=== PATIENT | female | born 1980 | race Caucasian/White ===

== ENCOUNTER 2018-06-21 12:11 | Emergency (ER) | payer OTHER ==
[2018-06-21 12:27] VITALS: BP 104/68; PULSE 77; TEMP 98.3; BMI 28.3
--- NOTE | 2018-06-21 13:16 | PDOC ---
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 Time Seen by Provider: 06/21/18 12:36 History Source: Patient Past History - Past Medical History Allergies/Adverse Reactions: Allergies Allergy/AdvReac Type Severity Reaction Status Date / Time No Known Allergies Allergy Verified 06/21/18 12:25 Home Medications: Ambulatory Orders NK [No Known Home Medication] 06/21/18 - Suicide/Smoking/Psychosocial Hx Smoking History: Never smoked Review of Systems - Review of Systems ABD/GI: No: Nausea, Vomiting, Abdominal cramping : No: Dysuria *Physical Exam - Vital Signs Last Vital Signs Temp Pulse Resp BP Pulse Ox 98.3 F 77 16 104/68 99 06/21/18 12:25 06/21/18 12:25 06/21/18 12:25 06/21/18 12:25 06/21/18 12:25 - Physical Exam General Appearance: Yes: Appropriately Dressed. No: Apparent Distress HEENT: positive: Normal Voice Neck: positive: Supple Gastrointestinal/Abdominal: positive: Soft. negative: Tender Integumentary: positive: Dry, Warm Neurologic: positive: Fully Oriented, Alert, Normal Mood/Affect Moderate Sedation - Procedure Monitoring Vital Signs: Procedure Monitoring Vital Signs Temperature 98.3 F 06/21/18 12:25 Pulse Rate 77 06/21/18 12:25 Respiratory Rate 16 06/21/18 12:25 Blood Pressure 104/68 06/21/18 12:25 O2 Sat by Pulse Oximetry (%) 99 06/21/18 12:25 Medical Decision Making - Medical Decision Making 06/21/18 13:13 37 yo f, (s/p 1 ectopic 8 yrs ago s/p L salpingectomy, 1 spon AB), ovarian cyst, s/p US today at [facility] for f/u for ovarian cyst and told ~[id number] cm "adnexal structure away from R ovary", on US, need to be r/o for ectopic. However for unclear reasons, no preg test was done per pt. LMP 05/23/18 and was nl per pt. No abd pain, vag bleed, dysuria, n/v at this time. Pt well louisa and stable w/ benign abd. Upreg done and neg. No need for further eval. Will dc w/ continued f/u for R ovarian cyst *DC/Admit/Observation/Transfer Diagnosis at time of Disposition: test negative Ovarian cyst Qualifiers: Laterality: right Qualified Code(s): N83.201 - Unspecified ovarian cyst, right side - Discharge Dispostion Disposition: HOME Condition at time of disposition: Good - Referrals - Patient Instructions Additional Instructions: Concepcion prueba de embarazo es negativa aqu. Por favor contine con concepcion gineclogo para concepcion quiste ovrico - Post Discharge Activity
[2018-06-21 13:37] LABS: URINE APPEARANCE CLEAR; URINE BILIRUBIN NEGATIVE (<2.0 mg/dL); URINE COLOR LTYELLOW; URINE GLUCOSE (UA) NEGATIVE (NEGATIVE); URINE KETONE NEGATIVE (NEGATIVE); URINE LEUK ESTERASE NEGATIVE (NEGATIVE); URINE NITRITE NEGATIVE (NEGATIVE); URINE PROTEIN NEGATIVE (NEGATIVE); URINE UROBILINOGEN NEGATIVE mg/dL (0.2-1.0)
[2018-06-21 13:59] LABS: HCG,QUALITATIVE URINE Negative
--- NOTE | 2018-06-21 14:31 | PDOC ---
*Physical Exam - Vital Signs Last Vital Signs Temp Pulse Resp BP Pulse Ox 98.3 F 77 16 104/68 99 06/21/18 12:25 06/21/18 12:25 06/21/18 12:25 06/21/18 12:25 06/21/18 12:25 ED Treatment Course - ADDITIONAL ORDERS Additional order review: Laboratory Results 06/21/18 13:12 Urine Color Ltyellow Urine Appearance Clear Urine pH 6.0 Ur Specific [place] 1.018 Urine Protein Negative Urine Glucose (UA) Negative Urine Ketones Negative Urine Blood Negative Urine Nitrite Negative Urine Bilirubin Negative Urine Urobilinogen Negative Ur Leukocyte Esterase Negative Urine HCG, Qual Negative *DC/Admit/Observation/Transfer Diagnosis at time of Disposition: test negative Ovarian cyst Qualifiers: Laterality: right Qualified Code(s): N83.201 - Unspecified ovarian cyst, right side - Discharge Dispostion Disposition: HOME Condition at time of disposition: Good - Referrals Referrals: Chris Garcia [Primary Care Provider] - - Patient Instructions Additional Instructions: Concepcion prueba de embarazo es negativa aqu. Por favor contine con concepcion gineclogo para concepcion quiste ovrico - Post Discharge Activity
== END 2018-06-21 14:15 | disposition home or self-care (01) ==
LOC: JER 12:11
DX: N83.201 Unspecified ovarian cyst, right side (principal); Z32.02 Encounter for pregnancy test, result negative
CPT/HCPCS: 81003; 84703; 99281-25

== ENCOUNTER 2021-08-29 16:23 | Emergency (ER) | payer OTHER ==
[2021-08-29 16:52] VITALS: BP 103/73; PULSE 77; TEMP 98; BMI 25.7
[2021-08-30 19:06] LABS: SARS-CoV-2 NAA Not Detected (Not Detected)
== END 2021-08-29 18:50 | disposition home or self-care (01) ==
LOC: JERFT 16:23
DX: U07.1 COVID-19 (principal)
CPT/HCPCS: 71046-TC-FY; 99284-25; C9803-CS; U0003; U0005

== ENCOUNTER 2021-09-18 03:14 | Emergency (ER) | payer OTHER ==
[2021-09-18 04:33] LABS: BASO % 2.1 % (0-2.0); EOS % 1.8 % (0-4.5); HEMATOCRIT 36.8 % (32.4-45.2); HEMOGLOBIN 12.7 GM/dL (10.7-15.3); LYMPH % 44.8 % (8-40); MCH 29.8 pg (25.7-33.7); MCHC 34.4 g/dl (32.0-36.0); MEAN CELL VOLUME 86.8 fl (80-96); MEAN PLT VOLUME 8.5 fl (7.5-11.1); MONO % 6.7 % (3.8-10.2); NEUT % 44.6 % (42.8-82.8); PLATELET COUNT 325 10^3/uL (134-434); RBC 4.25 M/mm3 (3.60-5.2); RDW 13.2 % (11.6-15.6); WHITE BLOOD COUNT 8.1 K/mm3 (4.0-10.0)
[2021-09-18 04:42] LABS: CALCIUM 8.7 mg/dL (8.5-10.1)
[2021-09-18 04:43] LABS: ALBUMIN 3.6 g/dl (3.4-5.0); BLOOD UREA NITROGEN 15.2 mg/dL (7-18)
[2021-09-18 04:46] LABS: CREATININE 0.6 mg/dL (0.55-1.3)
[2021-09-18 04:47] LABS: BILIRUBIN,TOTAL 0.5 mg/dL (0.2-1); TOT PROT 6.9 g/dl (6.4-8.2)
[2021-09-18] MEDS ORDERED: LIDOCAINE 5% TOPICAL PATCH TP ONE (05:30)
[2021-09-18] MEDS ORDERED: ACETAMINOPHEN 1000 MG/100 ML BAG IVPB ONE (05:30)
[2021-09-18] MEDS ORDERED: ACETAMINOPHEN INJECTION 100 ML IVPB ONE (05:47)
[2021-09-18] MEDS ORDERED: LIDOCAINE 5% TOPICAL PATCH ONE (05:48)
[2021-09-18 06:31] VITALS: TEMP 98.3; BMI 25.7
[2021-09-18 07:01] VITALS: BP 116/87; PULSE 87
[2021-09-18] MEDS ORDERED: LIDOCAINE PATCH REMOVAL MC ONE (18:00)
== END 2021-09-18 07:52 | disposition home or self-care (01) ==
LOC: JER 03:14
PROC: 3E0333Z Introduction of Anti-inflammatory into Peripheral Vein, Percutaneous Approach (ICD-10-PCS; principal; 2021-09-18)
DX: R07.9 Chest pain, unspecified (principal)
CPT/HCPCS: 36415; 71045-TC-FY; 80053; 84484; 84703; 85025; 85730; 93005; 93010; 96374; 99285-25

== ENCOUNTER → 2022-04-30 | Day surgery (SDC) | payer OTHER | END | disposition home or self-care (01) | LOC: JRADUS-SUR 08:20 | PROVIDERS: ATTEND Obstetrics & Gynecology | PROC: BU18YZZ Fluoroscopy of Uterus and Fallopian Tubes using Other Contrast (ICD-10-PCS; principal; 2022-04-30) | DX: N97.9 Female infertility, unspecified (principal) | CPT/HCPCS: 36415; 58340; 74740-TC-FY; 76000-TC-FY; 80053; 80061; 82977; 83036; 84436; 84443; 84479; 84703; 85027 ==